=== PATIENT | female | born 1970 | race Caucasian/White ===

== ENCOUNTER 2016-11-15 19:22 | Emergency (ER) | payer BC ==
[2016-11-15] MEDS ORDERED: Meclizine HCl 25 MG TAB ONE (22:00)
== END 2016-11-15 22:51 | disposition home or self-care (01) ==
LOC: ER 19:22
CPT/HCPCS: 70450

== ENCOUNTER 2016-11-23 19:40 | Emergency (ER) | payer BC ==
[2016-11-23] MEDS ORDERED: ASPIRIN 81 MG CHEW TAB ONE (20:10)
[2016-11-23] MEDS ORDERED: ONDANSETRON 4 MG VIAL ONE (23:40)
[2016-11-24] MEDS ORDERED: DILAUDID 1 MG/ML AMP ONE (00:03)
[2016-11-24] MEDS ORDERED: ALU/MAG/SIM 30 ML UDC ONE (00:17)
[2016-11-24] MEDS ORDERED: LIDOCAINE 2% VISC 15 ML UDC ONE (00:17)
== END 2016-11-24 01:10 | disposition home or self-care (01) ==
LOC: ER 19:40
DX: R07.2 Precordial pain (principal); R07.89 Other chest pain; R06.00 Dyspnea, unspecified; Z79.899 Other long term (current) drug therapy; Z79.4 Long term (current) use of insulin; E11.9 Type 2 diabetes mellitus without complications; I10 Essential (primary) hypertension; F41.1 Generalized anxiety disorder; J44.9 Chronic obstructive pulmonary disease, unspecified
CPT/HCPCS: 36415; 71010; 80053; 82550; 83735; 83880; 84484; 85025; 85379; 85610; 85730; 93005; 96374; 96375; 99284; J1170; J2405